=== PATIENT | female | born 1975 | race Caucasian/White ===

== ENCOUNTER 2021-08-23 07:51 | Emergency (ER) | payer SELFPAY ==
[2021-08-23] MEDS ORDERED: Ondansetron PF 4 MG/2 ML Vial ONE (08:23)
[2021-08-23] MEDS ORDERED: Morphine 4 MG/ML VIAL ONE (08:24)
[2021-08-23 08:33] LABS: #Eosinphils 0.1 thou/uL (0.0-0.7); #Lymphocytes 1.7 thou/uL (1.20-3.40); #Monocytes 0.4 thou/uL (0.11-0.59); #Neutrophils 9.1 thou/uL (1.40-6.50); %Basophils 0.3 % (0.0-1.0); %Eosinophils 0.7 % (0.0-10.0); %Lymphocytes 14.9 % (21.0-51.0); %Monocytes 3.6 % (0.0-10.0); %Neutrophils 80.5 % (42.0-75.0); Hemoglobin 14.1 g/dL (12.0-16.0); Mean Corpuscular HGB CONC 33.7 g/dL (32.0-36.0); Mean Corpuscular Hemoglobin 28.5 pg (27.0-31.0); Mean Corpuscular Volume 84.6 fL (78.0-98.0); Mean Platelet Volume 8.3 fL (7.4-10.4); Platelet Count 320 thou/uL (130-400); RBC Distribution Width 11.9 % (11.5-14.5); Red Blood Cell (RBC) Count 4.94 mill/uL (4.20-5.40); White Blood Cell (WBC) Count 11.3 thou/uL (4.8-10.8)
[2021-08-23 09:06] LABS: ALT (SGPT) 23 U/L (8-55); AST (SGOT) 35 U/L (5-34); Albumin 4.1 g/dL (3.5-5.0); Alkaline Phosphatase 104 U/L (40-110); Anion Gap 17 mmol/L (10-20); BUN (Urea Nitrogen) 9 mg/dL (7.0-18.7); Bilirubin, Total 0.5 mg/dL (0.2-1.2); Calc. Creatinine Clearance 0 mL/min (70-130); Calcium 8.9 mg/dL (7.8-10.44); Carbon Dioxide 22 mmol/L (22-29); Chloride 103 mmol/L (98-107); Globulin 3.8 g/dL (2.4-3.5); Glucose 111 mg/dL (70-105); Lipase 25 U/L (8-78); Potassium 4.9 mmol/L (3.5-5.1); Protein, Total 7.9 g/dL (6.0-8.3); Sodium 137 mmol/L (136-145)
[2021-08-23] MEDS ORDERED: Dicyclomine 20 MG TAB ONE (09:59)
== END 2021-08-23 09:50 | disposition home or self-care (01) ==
LOC: ERS 07:51
DX: K80.20 Calculus of gallbladder without cholecystitis without obstruction (principal); F17.210 Nicotine dependence, cigarettes, uncomplicated
CPT/HCPCS: 76705; 80053; 83690; 84484; 85025; 93005; 96374; 96375; J2270; J2405

== ENCOUNTER 2021-08-23 16:51 | Observation (INO) | payer OTHER, SELFPAY ==
[~2021-08-23 16:51] MED LIST: Iopamidol-370 76% 500 ML 1 ML ONE
[2021-08-23] MEDS ORDERED: Ketorolac Tromethamine 30 MG/ML VIAL ONE (17:26)
[2021-08-23] MEDS ORDERED: Ondansetron PF 4 MG/2 ML Vial ONE (17:26)
[2021-08-23 17:31] LABS: Bilirubin Negative (Negative); Blood, Urine Large (Negative); Glucose, Urine (Dipstick) Negative (Negative); Ketone, Urine 15 mg/dL (Negative); Leukocyte Negative (Negative); Nitrite Negative (Negative); Protein, Urine (Dipstick) 30 mg/dL (Neg-Trace); Urobilinogen 0.2 mg/dL (Less than 2); pH, Urine 5.5 (5.0-9.0)
[2021-08-23 17:32] LABS: #Basophils 0.1 thou/uL (0.0-0.2); #Eosinphils 0.1 thou/uL (0.0-0.7); #Monocytes 0.7 thou/uL (0.11-0.59); #Neutrophils 14.3 thou/uL (1.40-6.50); %Basophils 0.4 % (0.0-1.0); %Eosinophils 0.3 % (0.0-10.0); %Lymphocytes 11.9 % (21.0-51.0); %Neutrophils 83.3 % (42.0-75.0); Hemoglobin 15.1 g/dL (12.0-16.0); Mean Corpuscular Hemoglobin 28.6 pg (27.0-31.0); Mean Corpuscular Volume 84.4 fL (78.0-98.0); Mean Platelet Volume 7.7 fL (7.4-10.4); Platelet Count 398 thou/uL (130-400); RBC Distribution Width 11.8 % (11.5-14.5); Red Blood Cell (RBC) Count 5.27 mill/uL (4.20-5.40); White Blood Cell (WBC) Count 17.1 thou/uL (4.8-10.8)
[2021-08-23 17:35] LABS: Clarity Clear (Clear); Specific Gravity, Urine 1.026 (1.002-1.036)
[2021-08-23 17:41] LABS: Bacteria/HPF 1+ HPF (None Seen); WBC/HPF None Seen HPF (0-3)
[2021-08-23 17:55] LABS: ALT (SGPT) 24 U/L (8-55); AST (SGOT) 18 U/L (5-34); Albumin 4.5 g/dL (3.5-5.0); Alkaline Phosphatase 118 U/L (40-110); Anion Gap 16 mmol/L (10-20); BUN (Urea Nitrogen) 7 mg/dL (7.0-18.7); Bilirubin, Total 0.7 mg/dL (0.2-1.2); Calc. Creatinine Clearance 0 mL/min (70-130); Calcium 9.6 mg/dL (7.8-10.44); Carbon Dioxide 26 mmol/L (22-29); Chloride 100 mmol/L (98-107); Glucose 124 mg/dL (70-105); Lipase 26 U/L (8-78); Potassium 3.5 mmol/L (3.5-5.1); Protein, Total 8.5 g/dL (6.0-8.3); Sodium 138 mmol/L (136-145)
[2021-08-23 18:24] LABS: Pregu Control Background? CLEAR/WHITE (CLR/WHITE); Pregu Control Bar Appear? YES (CONTROL BAR); Specific Gravity 1.026 (1.002-1.036)
[2021-08-23 18:27] LABS: Pregnancy Test - Urine (BHCG) Negative (Negative)
[2021-08-23] MEDS ORDERED: Piperacillin/Tazobactam 3.375 GM VIAL ONE (18:58)
[2021-08-23] MEDS ORDERED: Morphine 4 MG/ML VIAL SLOW IVP PRN (20:56)
[2021-08-23] MEDS ORDERED: Ketorolac Tromethamine 30 MG/ML VIAL IVP PRN (20:56)
[2021-08-23] MEDS ORDERED: Sodium Chloride 0.9% 1,000 ML IV SCH (21:00)
[2021-08-23] MEDS ORDERED: Ondansetron ODT 4 MG TAB SL PRN (21:00)
[2021-08-23] MEDS ORDERED: Ondansetron PF 4 MG/2 ML Vial IVP PRN (21:00)
[2021-08-23 22:33] VITALS: BMI 40.1
[2021-08-23] MEDS ORDERED: Piperacillin/Tazobactam 3.375 GM in Sodium Chloride 0.9% 100 ML IVPB SCH (23:00)
[2021-08-23] MEDS ORDERED: Promethazine HCl 12.5 MG in Sodium Chloride 0.9% 50 ML IVPB PRN (23:22)
[2021-08-24] MEDS ORDERED: Fentanyl 100 MCG/2 ML VIAL ONE (07:05)
[2021-08-24 08:12] LABS: SARS-CoV-2 NAA Rapid Test Not Detected (NotDetected)
[2021-08-24] MEDS ORDERED: ceFAZolin 2 GM/DEX 5% 100 ML BAG ONE (08:41)
[2021-08-24] MEDS ORDERED: Bupivacaine 0.25% HCL 30 ML VIAL ONE (09:13)
[2021-08-24] MEDS ORDERED: Lidocaine 1% w/Epinephrine 1:100K 20 ML VIAL ONE (09:14)
[2021-08-24] MEDS ORDERED: Ondansetron PF 4 MG/2 ML Vial ONE (09:26)
[2021-08-24] MEDS ORDERED: Ketorolac Tromethamine 30 MG/ML VIAL ONE (09:26)
[2021-08-24] MEDS ORDERED: PROPOFOL 200 MG/20 ML VIAL ONE (09:26)
[2021-08-24] MEDS ORDERED: Glycopyrrolate 0.2 MG/ML 5 ML SYRINGE ONE (09:26)
[2021-08-24] MEDS ORDERED: Lidocaine 1% PF 5 ML VIAL ONE (09:26)
[2021-08-24] MEDS ORDERED: Dexamethasone 20 MG/5 ML VIAL ONE (09:26)
[2021-08-24] MEDS ORDERED: Rocuronium Bromide 10 MG/ML (10ML VIAL) ONE (09:26)
[2021-08-24] MEDS ORDERED: HYDROcodone/Acetaminophen 10/325 mg Tablet PO PRN (10:42)
[2021-08-24] MEDS ORDERED: Dextrose 5% in Water 1,000 ML IV PRN (10:42)
[2021-08-24] MEDS ORDERED: Calcium Carbonate 500 MG ChewTAB PO PRN (10:42)
[2021-08-24] MEDS ORDERED: Mag-Al 1200 mg/1200 mg/30 ML UDCUP PO PRN (10:42)
[2021-08-24] MEDS ORDERED: Promethazine HCl 25 MG/ML VIAL IM PRN ×2 (10:42→12:45)
[2021-08-24] MEDS ORDERED: Ondansetron PF 4 MG/2 ML Vial IVP PRN (10:42)
[2021-08-24] MEDS ORDERED: Dextrose 50% Abboject 50 ML SYRINGE SLOW IVP PRN (10:42)
[2021-08-24] MEDS ORDERED: D5 1/2 NS w/20 mEq KCL 1,000 ML IV SCH (10:45)
[2021-08-24] MEDS ORDERED: Morphine 4 MG/ML VIAL SLOW IVP PRN (11:05)
[2021-08-24] MEDS ORDERED: Ketorolac Tromethamine 30 MG/ML VIAL IVP SCH (12:00)
[2021-08-24] MEDS ORDERED: SODIUM CHLORIDE 0.9% IVPB PRN (12:45)
[2021-08-24] MEDS ORDERED: Ondansetron HCl/PF 4 MG/2 ML Vial IVP PRN (12:45)
[2021-08-24] MEDS ORDERED: PROMETHAZINE IVPB PRN (12:45)
[2021-08-24 13:16] VITALS: BP 144/85; TEMP 98
== END 2021-08-24 16:20 | disposition home or self-care (01) ==
LOC: ERS 16:51 → SURG A 19:09
PROVIDERS: ADMIT Surgery; ATTEND Surgery
PROC: 0FT44ZZ Resection of Gallbladder, Percutaneous Endoscopic Approach (ICD-10-PCS; principal; 2021-08-24)
DX: K80.12 Calculus of gallbladder with acute and chronic cholecystitis without obstruction (principal); K66.0 Peritoneal adhesions (postprocedural) (postinfection); K58.9 Irritable bowel syndrome, unspecified; F17.200 Nicotine dependence, unspecified, uncomplicated; Z88.6 Allergy status to analgesic agent; Z88.5 Allergy status to narcotic agent; Z90.49 Acquired absence of other specified parts of digestive tract; Z98.890 Other specified postprocedural states; Z20.822 Contact with and (suspected) exposure to COVID-19
CPT/HCPCS: 36415; 74177; 76705; 81003; 81015; 81025; 83605; 83690; 88304; 96365; 96375; 96376; G0378; J1100; J1885; J2270; J2405; J2543; J2550; J2704; J3010; J3490; J7050; Q9967; S0020; U0002